=== PATIENT | female | born 1935 | race Caucasian/White ===

== ENCOUNTER 2020-05-31 09:41 | Emergency (ER) | payer MEDICARE, OTHER ==
--- NOTE | 2020-05-31 09:59 | EDM.PDOC ---
ED HPI GENERAL MEDICAL PROBLEM - General Chief Complaint: Trauma Stated Complaint: FELL Time Seen by Provider: 05/31/20 09:52 Source of Information: Reports: Patient History Limitations: Reports: No Limitations - History of Present Illness INITIAL COMMENTS - FREE TEXT/NARRATIVE: Patient is a 83-year-old female who presents today for head injury. Patient daughter noted she is about to fall on try to catch her and braced her fall. They both fell and patient hit her head on a cabinet. Patient denies any LOC vision changes weakness or other complaints. Patient's complaints of pain to the back of her head. Patient does take warfarin. - Related Data Allergies Allergy/AdvReac Type Severity Reaction Status Date / Time No Known Allergies Allergy Verified 05/31/20 10:16 Home Meds: Home Meds . [No Known Home Meds] 05/31/20 [History] Review of Systems - Review of Systems Review Of Systems: See Below Constitutional: Reports: No Symptoms Eyes: Reports: No Symptoms Ears: Reports: No Symptoms Nose: Reports: No Symptoms Mouth/Throat: Reports: No Symptoms Respiratory: Reports: No Symptoms Cardiovascular: Reports: No Symptoms GI/Abdominal: Reports: No Symptoms Genitourinary: Reports: No Symptoms Musculoskeletal: Reports: No Symptoms Skin: Reports: No Symptoms Neurological: Reports: No Symptoms Psychiatric: Reports: No Symptoms ED EXAM, GENERAL - Physical Exam Exam: See Below Exam Limited By: No Limitations General Appearance: Alert, WD/WN Eye Exam: Bilateral Eye: EOMI, PERRL Neck: Non-Tender, Tender Midline Respiratory/Chest: No Respiratory Distress, Lungs Clear, Normal Breath Sounds Cardiovascular: Normal Peripheral Pulses, Regular Rate, Rhythm GI/Abdominal: Normal Bowel Sounds, Soft, Non-Tender Extremities: Normal Inspection, Normal Range of Motion Neurological: Alert, Oriented, CN II-XII Intact Course - Vital Signs Last Recorded V/S: Last Vital Signs Temp 96.8 F L 05/31/20 09:36 Pulse Resp 18 05/31/20 09:36 BP 147/78 H 05/31/20 09:36 Pulse Ox 97 05/31/20 09:36 - Orders/Labs/Meds Labs: Laboratory Tests 05/31/20 05/31/20 05/31/20 Range/Units 10:15 10:15 10:15 WBC 5.44 (4.0-11.0) K/uL RBC 3.73 L (4.30-5.90) M/uL Hgb 12.1 (12.0-16.0) g/dL Hct 37.7 (36.0-46.0) % MCV 101.1 H (80.0-98.0) fL MCH 32.4 H (27.0-32.0) pg MCHC 32.1 (31.0-37.0) g/dL RDW Std Deviation 53.2 (28.0-62.0) fl RDW Coeff of Leonela 15 (11.0-15.0) % Plt Count 220 (150-400) K/uL MPV 10.60 (7.40-12.00) fL Neut % (Auto) 70.9 (48.0-80.0) % Lymph % (Auto) 16.7 (16.0-40.0) % Rowan % (Auto) 7.0 (0.0-15.0) % Eos % (Auto) 5.0 (0.0-7.0) % Baso % (Auto) 0.4 (0.0-1.5) % Neut # (Auto) 3.9 (1.4-5.7) K/uL Lymph # (Auto) 0.9 (0.6-2.4) K/uL Rowan # (Auto) 0.4 (0.0-0.8) K/uL Eos # (Auto) 0.3 (0.0-0.7) K/uL Baso # (Auto) 0.0 (0.0-0.1) K/uL Nucleated RBC % 0.0 /100WBC Nucleated RBCs # 0 K/uL INR 1.82 APTT 35.8 H (18.6-31.3) SEC Sodium 144 (136-145) mmol/L Potassium 4.3 (3.5-5.1) mmol/L Chloride 107 (98-107) mmol/L Carbon Dioxide 29.0 (21.0-32.0) mmol/L BUN 36 H (7.0-18.0) mg/dL Creatinine 1.7 H (0.6-1.0) mg/dL Est Cr Clr Drug Dosing 18.33 mL/min Estimated GFR (MDRD) 28.8 ml/min Glucose 104 (74-106) mg/dL Calcium 10.0 (8.5-10.1) mg/dL - Re-Assessments/Exams Free Text/Narrative Re-Assessment/Exam: 05/31/20 11:[address] head and C-spine are negative. Patient INR is only 1.8. Patient is at her baseline will be discharged home. Departure - Departure Time of Disposition: 11:00 Disposition: Home, Self-Care 01 Condition: Good Clinical Impression: Head injuries - Discharge Information *PRESCRIPTION DRUG MONITORING PROGRAM REVIEWED*: Not Applicable *COPY OF PRESCRIPTION DRUG MONITORING REPORT IN PATIENT ABBIE: Not Applicable Forms: ED Department Discharge Additional Instructions: The following information is given to patients seen in the emergency department who are being discharged to home. This information is to outline your options for follow-up care. We provide all patients seen in our emergency department with a follow-up referral. The need for follow-up, as well as the timing and circumstances, are variable depending upon the specifics of your emergency department visit. If you don't have a primary care physician on staff, we will provide you with a referral. We always advise you to contact your personal physician following an emergency department visit to inform them of the circumstance of the visit and for follow-up with them and/or the need for any referrals to a consulting specialist. The emergency department will also refer you to a specialist when appropriate. This referral assures that you have the opportunity for follow-up care with a specialist. All of these measure are taken in an effort to provide you with optimal care, which includes your follow-up. Under all circumstances we always encourage you to contact your private physician who remains a resource for coordinating your care. When calling for follow-up care, please make the office aware that this follow-up is from your recent emergency room visit. If for any reason you are refused follow-up, please contact the [facility] Emergency Department at and asked to speak to the emergency department charge nurse. Please follow up with your primary care physician. If you do not have a primary care physician, see below: [facility] [address] [place] [id number] [facility] [address] [place] [id number] We did a CAT scan of your head and neck that did not show any bleed or fractures. We recommend not taking your warfarin just for tonight but you can restart them tomorrow. If you have any vomiting increased headaches or change in your mental status please return to the ED. Sepsis Event Note (ED) - Focused Exam Vital Signs: Vital Signs Temp Resp BP Pulse Ox 05/31/20 09:36 96.8 F L 18 147/78 H 97 - Assessment/Plan Assessment:: Patient is an 83-year-old female who presents today for the head injury while anticoagulation. Patient has some spinal tenderness in the cervical region will obtain a head CT and check INR.
--- NOTE | 2020-05-31 10:31 | CT ---
INDICATION: From a COMPARISON: None TECHNIQUE: CT examination of the head was performed as axial sections without intravenous contrast. Images were obtained from the vertex of the skull through the skull base. Please note that all CT scans at this facility use dose modulation, iterative reconstruction, and/or weight-based dosing when appropriate to reduce radiation dose to as low as reasonably achievable. FINDINGS: The brain shows no sign of mass lesion, mass effect, hemorrhage, or edema. There are involutional changes. There is mild cortical atrophy and there is mild white matter disease. There is no hydrocephalus. Encephalomalacia in the right posterior frontal region probably an old infarct. The visualized portions of the orbits are normal in appearance. There are basal ganglionic calcifications. There are atherosclerotic vascular calcifications. There is mild deformity of the nasal bones though this may be chronic. Correlate with point tenderness in this area The osseous structures are normal in appearance with no sign of abnormality in the skull base or calvarium. IMPRESSION: No acute intracranial posttraumatic findings. 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 No calvarial fracture. Please note that all CT scans at this facility use dose modulation, iterative reconstruction, and/or weight-based dosing when appropriate to reduce radiation dose to as low as reasonably achievable. Dictated by Chaparro Kebede MD @ May 31 2020 10:26AM Signed by Dr. Chaparro Kebede @ May 31 2020 10:29AM
--- NOTE | 2020-05-31 10:33 | CT ---
INDICATION: Trauma. COMPARISON: None TECHNIQUE: CT examination of the cervical spine is performed without contrast using spiral technique. Thin axial, sagittal and coronal reconstructions were made. Please note that all CT scans at this facility use dose modulation, iterative reconstruction, and/or weight-based dosing when appropriate to reduce radiation dose to as low as reasonably achievable. FINDINGS: : Bone mineral density is decreased. There are moderate to severe degenerative changes diffusely. There is no visible acute fracture, dislocation or destructive process. Incidental right upper lobe granuloma. IMPRESSION: Demineralization and degenerative change. No visible acute fracture, dislocation or destructive process. Please note that all CT scans at this facility use dose modulation, iterative reconstruction, and/or weight-based dosing when appropriate to reduce radiation dose to as low as reasonably achievable. Dictated by Chaparro Kebede MD @ May 31 2020 10:29AM Signed by Dr. Chaparro Kebede @ May 31 2020 10:31AM
[2020-05-31 10:53] LABS: POTASSIUM,K 4.3 mmol/L (3.5-5.1)
== END 2020-05-31 11:24 | disposition home or self-care (01) ==
LOC: MW.ED 09:41 → EDBD 09:41 → MW.ED 11:24
DX: S00.03XA Contusion of scalp, initial encounter (principal); M54.2 Cervicalgia; Z79.01 Long term (current) use of anticoagulants; W22.8XXA Striking against or struck by other objects, initial encounter
CPT/HCPCS: 36415; 70450; 70450-26; 72125; 72125-26; 80048; 85025; 85610; 85730; 99284-25